=== PATIENT | female | born 1980 | race Caucasian/White ===

== ENCOUNTER 2019-01-17 14:11 | Emergency (ER) | payer BC, OTHER ==
[~2019-01-17] VITALS: Ht 157.5 cm; Wt 56.7 kg
[2019-01-17] MEDS ORDERED: TETANUS,DIPTH,PERTUSS P/F (BOOSTRIX) 0.5 ML VIAL IM ONE (14:45)
--- NOTE | 2019-01-17 15:00 | NUR ---
TO CT PER W/C
--- NOTE | 2019-01-17 15:08 | ED Trauma-Multisystem ---
General Chief Complaint: Trauma-Non Activation Stated Complaint: L SIDE HEAD INJ LAST NIGHT/L EAR HEARING ISSUES Nursing Triage Note: TRIPPED AND FELL INTO A WALL THEN THE FLOOR AT [facility] 10PM LAST NOC. UNKNOWN LOC. STATES SHE HAD BEEN DRINKING ETOH AT [place] SHE WAS [place]. SEEN AT URGENT CARE WHO SENT HER HERE FOR BLEEDING BEHIND THE EAR DRUM AND BRUISING. PT STATES SHE IS HAVING TROUBLE HEARING AND THAT IS THE REASON SHE WENT TO URGENT CARE TODAY. Source of Information: Patient Exam Limitations: No Limitations History of Present Illness Date Seen by Provider: Jan 17, 2019 Time Seen by Provider: 14:30 Initial Comments 38-year-old female who presents to the emergency room with complaints of left- sided head pain, difficulty hearing out of her left ear, and ecchymosis behind her left ear after a fall last night around 10 PM. She is unsure if she had loss of consciousness but believes that she did not because she remembers everything. She had been drinking at a wedding when she fell. She was seen at [facility] urgent care and sent over due to the ecchymosis behind her left ear. She has abrasions to bilateral knees, left hip, and left hand ecchymosis. She denies neck pain. Location Injury Occurred: BRUISNG BEHINDE L EAR. Occurred: Just Prior to Arrival Pain/Injury Location: Head Method of Injury: Direct Blow, Fall Loss of Consciousness: Unsure Associated Symptoms (Fall): Denies Symptoms Allergies and Home Medications Allergies Coded Allergies: No Known Drug Allergies (Unverified , 01/17/19) Home Medications Sulfamethoxazole/Trimethoprim 1 Each Tablet, 1 EACH PO BID Prescribed by: KATI JEAN on 01/17/19 1525 Patient Home Medication List Home Medication List Reviewed: Yes Review of Systems Review of Systems Constitutional: see HPI; No chills, No fever Ears: See HPI, Pain, Previous Injury, Other (CRAIG out of left ear) Past Ypnlynx-Xjotpe-Bqsuya Hx Patient Social History Alcohol Use: Occasionally Uses Recreational Drug Use: No Smoking Status: Never a Smoker Recent Foreign Travel: No Contact w/Someone Who Travel: No Recent Infectious Disease Expo: No Past Medical History Surgeries: Yes Section Respiratory: No Cardiac: No Neurological: No Last Menstrual Period: December 27, 2018 Genitourinary: No Gastrointestinal: No Musculoskeletal: No Endocrine: No HEENT: No Cancer: No Psychosocial: No Physical Exam Vital Signs Vital Signs - First Documented 01/17/19 14:23 Temp 98.2 Pulse 77 Resp 16 B/P (MAP) 124/65 (84) Pulse Ox 98 O2 Delivery Room Air Height, Weight, BMI Height: 5'2.00" Weight: 125lbs. oz. 56.147962ps; BMI Method:Stated General Appearance: No Apparent Distress, WD/WN Head: Anderson's Sign (behind left ear), Ecchymosis (behind left ear) Eyes: Bilateral Eye Normal Inspection, Bilateral Eye PERRL, Bilateral Eye EOMI Ears, Nose, Throat: No Evidence of ENT Injury, No Dental Injury Neck: Full Range of Motion, Normal Inspection, Non Tender, Supple Cardiovascular: Regular Rate, Rhythm, No Edema, No Gallop, No JVD, No Murmur, Normal Peripheral Pulses Respiratory: Chest Non Tender, Lungs Clear, Normal Breath Sounds, No Accessory Muscle Use, No Respiratory Distress Gastrointestinal: Normal Bowel Sounds, No Organomegaly, No Pulsatile Mass, Non Tender, Soft Extremity: Normal Capillary Refill, Normal Inspection, Normal Range of Motion, Non Tender, No Calf Tenderness, No Pedal Edema, Other (ecchymosis to left hand, left knee, left hip) Neurologic/Psychiatric: Alert, Oriented x3, Normal Mood/Affect Skin: Normal Color, Warm/Dry Honaker Coma Score Best Eye Response (Jayde): (4) Open Spontaneously Best Verbal Response (Jayde): (5) Oriented Best Motor Response (Jayde): (6) Obeys Commands Honaker Total: 15 Progress/Results/Core Measures Results/Orders My Orders Orders - KATI JEAN Ct Head Wo (01/17/19 14:36) Dipht,Pertuss(Acell),Tet Adult (Boostrix (01/17/19 14:45) Medications Given in ED Vital Signs/I&O 01/17/19 01/17/19 14:23 15:50 Temp 98.2 Pulse 77 76 Resp 16 18 B/P (MAP) 124/65 (84) 109/71 (84) Pulse Ox 98 99 O2 Delivery Room Air Room Air Blood Pressure Mean: 84 Departure Impression Primary Impression: Minor head injury Disposition: 01 HOME, SELF-CARE Condition: Stable/Unchanged Departure-Patient Inst. Decision time for Depature: 15:23 Referrals: NO,LOCAL PHYSICIAN (PCP/Family) Primary Care Physician Patient Instructions: Minor Head Injury (DC), Skin Abrasions (DC) Add. Discharge Instructions: Take anabiotic's as directed. Follow-up with your primary care provider within 1 week for recheck. Follow-up with ear nose and throat doctor within 1 week for recheck. Return back to the emergency room for worsening symptoms or concerns as needed. All discharge instructions reviewed with patient and/or family. Voiced understanding. Scripts Sulfamethoxazole/Trimethoprim (Bactrim Ds Tablet) 1 Each Tablet 1 EACH PO BID for 7 Days, #14 TAB Prov: KATI JEAN 01/17/19 KATI JEAN Jan 17, 2019 15:08
--- NOTE | 2019-01-17 15:11 | Diagnostic Imaging Report ---
PROCEDURE: CT head without contrast. TECHNIQUE: Multiple contiguous axial images were obtained through the brain without the use of intravenous contrast. Auto Exposure Controls were utilized during the CT exam to meet ALARA standards for radiation dose reduction. INDICATION: Traumatic head injury. Possible loss of consciousness. COMPARISON: None. FINDINGS: BRAIN: No parenchymal hemorrhage, midline shift or mass effect. Canales-white matter differentiation is intact. No acute infarct. No white matter lesions. Ventricles, sulci and basilar cisterns are normal. EXTRA-AXIAL SPACES: No subdural or epidural collections. ORBITS AND PARANASAL SINUSES: Visualized orbits and globes are intact. Visualized paranasal sinuses and mastoid air cells are clear. CALVARIUM AND SOFT TISSUES: The calvarium is intact. No fractures or suspicious bony lesions. The extracranial soft tissues are unremarkable. IMPRESSION: No acute intracranial pathology. Dictated by: Dictated on workstation # [id number]
[2019-01-17] MEDS ORDERED: SULF1TAB35 PO (15:25)
[2019-01-17 15:50] VITALS: BP 109/71
== END 2019-01-17 15:49 | disposition home or self-care (01) ==
LOC: ER 14:13
DX: S09.90XA Unspecified injury of head, initial encounter (principal); R40.2142 Coma scale, eyes open, spontaneous, at arrival to emergency department; R40.2252 Coma scale, best verbal response, oriented, at arrival to emergency department; R40.2362 Coma scale, best motor response, obeys commands, at arrival to emergency department; Z23 Encounter for immunization; Z98.890 Other specified postprocedural states
CPT/HCPCS: 70450; 90471; 90715